=== PATIENT | male | born 1945 | race Two or more races ===

== ENCOUNTER 2023-07-04 11:23 | Day surgery (SDC) | payer MEDICARE, MEDICAID ==
[~2023-07-04] VITALS: Ht 167.6 cm; Wt 97.0 kg
[~2023-07-04 11:23] MED LIST: ASPI-611 PO; ATOR-2 PO; CARV-49 PO; CHLO25TA10; ISOS30TA84 PO; LISI10TA27 PO; NITR0.4T48 SL; OMEP20TA43 PO
[2023-07-04] MEDS ORDERED: normal saline 1000ml 1,000 ML IV PRN (11:50)
[2023-07-04] MEDS ORDERED: MAGN250T11 PO (12:23)
[2023-07-04] MEDS ORDERED: PANT40TA54 PO (12:23)
[2023-07-04] MEDS ORDERED: ONDA-103 PO (12:23)
[2023-07-04] MEDS ORDERED: PROC10TA97 PO (12:23)
[2023-07-04] MEDS ORDERED: DICL100G59 TOP (12:23)
[2023-07-04] MEDS ORDERED: AMLO5TAB16 PO (12:23)
[2023-07-04] MEDS ORDERED: zinc PO (12:24)
[2023-07-04] MEDS ORDERED: POTA-192 PO (12:25)
[2023-07-04 12:27] LABS: BASOPHILS % (AUTO) 0.7 % (0-1); EOSINOPHILS # (AUTO) 0.6 X10'3 (0-0.9); EOSINOPHILS % (AUTO) 8.1 % (0-6); LYMPHOCYTES # (AUTO) 1.5 X10'3 (1.1-4.8); LYMPHOCYTES % (AUTO) 22.3 % (21-51); MEAN CORPUSCULAR HEMOGLOBIN 29.9 PG (27.0-31.0); MEAN CORPUSCULAR HGB CONC 33.7 g/dL (33.0-36.5); MEAN CORPUSCULAR VOLUME 88.6 FL (78-98); MEAN PLATELET VOLUME 8.3 FL (7.4-10.4); MONOCYTES # (AUTO) 0.6 X10'3 (0-0.9); MONOCYTES % (AUTO) 9.4 % (2-12); NEUTROPHILS # (AUTO) 4.1 X10'3 (1.8-7.7); NEUTROPHILS % (AUTO) 59.5 % (42-75); PRE OP HEMATOCRIT 34.9 % (42.0-52.0); PRE OP HEMOGLOBIN 11.8 g/dL (14.0-17.9); PRE OP PLATELET COUNT 169 X10'3 (140-440); PRE OP WHITE BLOOD COUNT 6.9 10'3 (4.8-10.8); RED BLOOD COUNT 3.94 X10'6 (4.70-6.10); RED CELL DISTRIBUTION WIDTH 20.9 % (11.5-14.5)
[2023-07-04] MEDS ORDERED: fentaNYL/PF 50MCG/1 ML 2ML syringe ONE (12:33)
[2023-07-04] MEDS ORDERED: midazolam 1 mg/ML 2ml injection ONE (12:33)
[2023-07-04] MEDS ORDERED: heparin sodium, porcine/PF 100unit/ml 5ML syringe ONE (12:33)
[2023-07-04 12:36] VITALS: BP 153/85; PULSE 88; RESP 18; TEMP 98.8; O2SAT 95
[2023-07-04 12:39] VITALS: RESP 18; O2SAT 100
[2023-07-04 12:46] LABS: ANISOCYTOSIS 3+; HYPOCHROMASIA 1+; PLATELET ESTIMATE NORMAL; STOMATOCYTES 1+
[2023-07-04 12:53] LABS: INR 0.9 INR
[2023-07-04 13:46] VITALS: BP 152/100; PULSE 97; RESP 14; O2SAT 94
[2023-07-04 14:01] VITALS: BP 144/82; PULSE 86; RESP 14; O2SAT 94
[2023-07-04 14:16] VITALS: BP 143/76; PULSE 74; RESP 14; O2SAT 94
[2023-07-04 14:31] VITALS: BP 143/70; PULSE 77; RESP 14; O2SAT 94
== END 2023-07-04 14:40 | disposition home or self-care (01) ==
LOC: SSTAY O 11:23
PROVIDERS: ATTEND Radiology Vascular & Interventional Radiology
DX: C16.9 Malignant neoplasm of stomach, unspecified (principal); Z79.82 Long term (current) use of aspirin; Z79.899 Other long term (current) drug therapy
CPT/HCPCS: 36415; 36561; 77001; 85025; 85610; 99152; C1788; J1642; J2250; J3010; J7030; 85008; 99153; A4620; C1894